=== PATIENT | female | born 1995 | race Caucasian/White ===

== ENCOUNTER 2020-09-29 11:16 | Observation (INO) ==
[2020-09-29 11:40] LABS: Hematocrit 39.7 % (37.0-47.0); Hemoglobin 12.9 gm/dL (12.5-16.0); Mean Cell Volume 86.9 fl (78-100); Mean Corpuscular Hemoglobin 28.2 pg (27-31); Mean Corpuscular Hgb Conc 32.5 g/dl (32-36); Mean Platelet Volume 8.2 fl (8-12.5); Neutrophil # 5.3 K/mm3 (1.3-6.0); Neutrophil % 70.6 % (42-75.0); Platelet Count 303 K/mm3 (150-450); Red Blood Count 4.57 M/mm3 (4.2-5.4); Red Cell Distribution Width 12.6 % (11.5-14.0); White Blood Count 7.5 K/mm3 (4.0-10.5)
[2020-09-29 11:48] LABS: ALT 18 U/L (19-67); AST 14 U/L (0-48); Albumin * 3.8 gm/dl (3.4-5.0); Alkaline Phosphatase * 83 U/L (50-170); Anion Gap 12.4 mmol/L (6.8-13.8); BUN/Creatinine Ratio 17.1 (9.0-21.6); Bilirubin, Total 0.4 mg/dL (0.0-1.1); Blood Urea Nitrogen 13 mg/dL (3-23); Calcium * 9.2 mg/dL (7.9-10.9); Carbon Dioxide 24.2 mmol/L (24-32.6); Chloride 101 mmol/L (97-106); Glucose * 123 mg/dL (70-110); Potassium 3.6 mmol/L (3.4-4.6); Sodium 134 mmol/L (132-142); Total Protein 7.9 gm/dL (6.2-8.2)
[2020-09-29] MEDS ORDERED: MORPHINE SULFATE 2 MG/ML DISP.SYRIN IV ONE (12:52)
[2020-09-29] MEDS ORDERED: LIDOCAINE HCL 50 ML VIAL ONE (12:52)
[2020-09-29 13:12] LABS: Cocaine Ur Negative (NEGATIVE); Urine Barbiturate Negative (NEGATIVE); Urine Benzodiazepines Negative (NEGATIVE); Urine Opiates Negative (NEGATIVE); Urine PCP Negative (NEGATIVE); Urine THC Negative (NEGATIVE)
[2020-09-29 13:24] LABS: Urine Appearance Clear (CLEAR); Urine Bacteria None Seen; Urine Bilirubin Negative (NEGATIVE); Urine Blood Negative /ul (NEGATIVE); Urine Color Yellow; Urine Ketone Negative (NEGATIVE); Urine Nitrite Negative (NEGATIVE); Urine Protein Negative (NEGATIVE); Urine RBC None Seen /hpf (0-5); Urine Urobilinogen Normal (NORMAL); Urine WBC None Seen /hpf (0-5); Urine pH 7.5 pH (5.0-7.0)
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
[2020-09-29] MEDS ORDERED: KETOROLAC TROMETHAMINE 30 MG/ML VIAL IV ONE (15:46)
[2020-09-29] MEDS ORDERED: ACETAMINOPHEN 1,000 MG/100 ML BTL IV ONE (19:42)
[2020-09-29] MEDS: ACETAMINOPHEN 325 MG TABLET PO PRN (19:51)
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
[2020-09-30] MEDS: ACETAMINOPHEN 325 MG TABLET PO PRN (05:01)
[2020-09-30] MEDS ORDERED: ACETAMINOPHEN 1,000 MG/100 ML BTL IV ONE (09:45)
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
[2020-09-30 10:30] VITALS: BP 108/61
== END 2020-09-30 11:10 | disposition home or self-care (01) ==
LOC: MS 11:16 → ER 11:16 → MS 17:20
PROVIDERS: ADMIT Family Medicine; ATTEND Family Medicine
DX: V49.9XXA Car occupant (driver) (passenger) injured in unspecified traffic accident, initial encounter; M54.2 Cervicalgia; R10.9 Unspecified abdominal pain; S01.81XA Laceration without foreign body of other part of head, initial encounter; M54.9 Dorsalgia, unspecified